=== PATIENT | female | born 1950 | race Caucasian/White ===

== ENCOUNTER 2024-02-16 07:28 | Day surgery (SDC) | payer MEDICARE, OTHER, SELFPAY ==
[2024-02-16] VITALS (49 sets, daily range): BP systolic 115–200; BP diastolic 32–122; BMI 19.1
[2024-02-16 08:13] LABS: Glucose - Point of Care 142 mg/dl (70-99)
[2024-02-16] MEDS: NSS 156 ML IV (08:13)
[2024-02-16 10:05] LABS: ACT-LR - POC 356 Seconds (116-155)
--- NOTE | 2024-02-16 10:52 | ITS.CL.CATH ---
Engine Dynamometer Tester - Catheterization
Cardiac Catheterization
Procedure Report:
CARDIAC CATHETERIZATION REPORT
Date of Procedure: 02/16/2024
Referring: Deniz Coronado MD
Indication: Known CAD with recurrent angina and new decline in LVEF
�
HEMODYNAMIC DATA
AO: 146/40
LV: 162/16
PCWP: 18
PA: 50/20
RV: 50/15
RA: 12
Oximetry: Ao 99%, PA 75%, IVC 81%,, cardiac output 3.3, cardiac index 2.1
Simultaneous left ventricular and aortic waveforms demonstrate mild to moderate aortic stenosis with mean gradient 17 mmHg
�
LEFT VENTRICULOGRAPHY: Apical akinesis with EF 43%
�
CORONARY ANGIOGRAPHY
Dominance: Right
Left Main: Short without stenosis
LAD: The LAD is a small caliber vessel with multisegment disease. There is focal 70% stenosis distal to the first septal shanker out and spanning the takeoff of the second septal shanker out. There is 50% stenosis just distal to this lesion and
proximal to the large third septal shanker out. There are tandem 60 and 70% lesions distal to the takeoff of the large S3.
Circumflex: 30% proximal circumflex stenosis with a tandem 50% and 40% mid circumflex stenoses. OM1 is a twig. OM 2 is a small vessel. OM 3 is a large branch without visible disease. The circumflex terminates with a single moderate-sized left
posterolateral branch.
RCA: There is mild luminal disease in the RCA proper with a widely patent mid RCA stent with no restenosis. The stent was placed in December 2022. There is highly angulated 70% proximal RPDA stenosis. The PDA is large and the RCA terminates with a
tiny posterolateral branch
Angioplasty: At the conclusion the diagnostic study, we proceeded with LAD PCI. A 6F EBU 3 guide catheter was used. Heparin was used for anticoagulation. A BMW wire was advanced into the mid to distal vessel but could not be passed across the
highly angulated segment of vessel just distal to the diseased segment. A Fielder XT similarly could not be placed into the apical LAD. I decided to perform balloon angioplasty to see if this would facilitate wire advancement into the apical LAD.
A 2.0 x 20 Euphora balloon was advanced to the mid LAD and sequential inflations to 8 soledad to treat the more distal segment of disease and then the more proximal segment of disease was accomplished. This provided a very good balloon results but did
not allow wire advancement into the distal LAD and it was clear that the wire was in a tiny branch vessel starting just distal to the area of significant disease. We attempted to pass a second wire but this also would not advance into the distal
LAD. At this point I placed a 2.0 x 26 Arnel frontier CARMELO to cover the proximal and more distal disease segments. We specifically chose to not extend the stent to the area just proximal to the highly angulated segment as I was concerned this might
lead to dissection/closure. The stent was deployed at 15 soledad then postdilated with a 2.5 NC emerge to maximum 16 soledad. The final angiographic result was excellent. There was no evidence of dissection distal to the stented segment and there was no
residual stenosis within the stented segment.
�
Closure Device: None-the procedure was performed. The RFA and RFV. Of note, angiography done to possibly place a closure device demonstrated a very high common femoral artery bifurcation site at the top of the femoral head and the entry site into
the vessel was either at the crotch of the DISABILITY ATTORNEY bifurcation or in the proximal deep femoral artery just distal to the bifurcation site. Accordingly, we made a decision not to place a closure device in favor of manual compression for hemostasis once
the ACT falls below 180 seconds. Brilinta 180 mg was administered the procedure conclusion as she has demonstrated a rash with Plavix in the past
�
Radiation (mGy): 538
DAP (cm2.Gy): 39.9
Fluoroscopy time: 26.7 minutes
�
CONCLUSIONS
1:�Mildly elevated left-sided filling pressures with moderate pulmonary hypertension
2:�Moderate aortic stenosis with mean gradient 17 mmHg
3. Apical akinesis with EF 43%
4. Multivessel CAD as described
5. Successful angioplasty and stenting of tandem lesions in the LAD using a 2.0 x 26 Arnel frontier CARMELO
6. Recommend triple therapy for one week (Eliquis, ASA, Brilinta) then Brilinta/Eliquis for 12 mo then ASA/Eliquis
6. Further progression of CAD and/or development of symptomatic severe aortic stenosis likely prompt the need for surgical AVR/CABG despite less than ideal target vessels
�
�
Copy to: Deniz Coronado MD ([facility]), Tomas Britt MD ([place] [place])
�
Isacc Tomlinson MD, [facility], [facility]
[2024-02-16 11:01] LABS: ACT-LR - POC 248 Seconds (116-155)
[2024-02-16 12:08] LABS: Glucose - Point of Care 116 mg/dl (70-99)
[2024-02-16 12:10] LABS: ACT-LR - POC 253 Seconds (116-155)
--- NOTE | 2024-02-16 12:17 | PN.DE.MGMTRT ---
Insulin Management
- -
02/16/2024 Diabetes Management Consult, Insulin pump:
Patient admitted, now s/p cardiac cath. PMH a fib, TIA, no residual, HTN, HLD, type 2 diabetes requiring insulin, currently using an insulin pump.
Patient is awake alert and oriented, supine s/p cath. Able to discuss diabetes care. She sees endocrine on a regular basis and states A1C is usually 6.9 to 7%. She is currently using the Tandem tslim x2 pump with DexCom G 7 and novolog insulin
with autosoft xc 9mm infusion set. Pump settings as follows:
basal Sensitivity CHO ratio target
12am .65 56 18 119
4AM .5 42 14 110
6am .8 42 11 110
9:30am .68 50 9 110
12pm .55 60 6.4 110
2pm .5 60 6.4 110
4:30pm .5 60 5.8 110
5:30pm .55 40 5.8 110
10pm .6 45 8.8 110
24 hour basal total 14.625
Patient aware to bolus for meals and corrections. Nurse to provide bedside worksheet.
Diabetes History
- -
Type of Diabetes: 2 requiring insulin
Pre-Admission Diabetes Regimen
Insulin Pump Settings
IP Diabetes Regimen
02/16/24 02/16/24
08:02 12:07
POC Glucose 142 H 116 H
Patient Education
[2024-02-16] MEDS: NSS 1000 IV (12:41)
--- NOTE | 2024-02-16 12:59 | PTCARENOTE ---
Assumed care of pt from CCL upon tsf post stent to LAD. Pt arrives awake and alert, Ox3. VSS, CM shows SB 50's, POX 100% on RA. Arterial sheath in place to right femoral artery, first ACT =253. Instructions given for movement restrictions.
Daughter 'Iman' at bedside with pt. Pt resting comfortable, offers no c/o pain or discomfort.
[2024-02-16 13:07] LABS: ACT-LR - POC 202 Seconds (116-155)
[2024-02-16 13:38] LABS: ACT-LR - POC > 397 Seconds (116-155)
[2024-02-16 13:38] LABS: ACT-LR - POC > 397 Seconds (116-155)
[2024-02-16] MEDS: TYLENOL 650 MG PO (13:47)
[2024-02-16 13:52] LABS: Glucose - Point of Care 102 mg/dl (70-99)
[2024-02-16] MEDS: PT'S OWN INSULIN PUMP - NovoLOG SC ×3 (13:52→22:06)
[2024-02-16 14:09] LABS: ACT-LR - POC 168 Seconds (116-155)
--- NOTE | 2024-02-16 14:54 | CM ---
Chart reviewed. Patient is independent of ADLS, lives with her in a 2 STH, 4 SAMIR, 0 DME. Plan is for the patient to return home. CM to follow
--- NOTE | 2024-02-16 14:55 | CM ---
Pricing on Brilinta 90mg BID though the patients [facility] [employer], ID 3 [id number] is $111 a month. Patient does not need to meet a deductible. Patient is agreeable to cost. I placed a free 30 day coupon in the patient's red discharge folder. [facility]
does have the Brilinta in stock
--- NOTE | 2024-02-16 15:11 | PTCARENOTE ---
Femoral and Venous sheath's pulled by CCL, manual pressure held as per protocol, dsg remains CDI.
[2024-02-16 17:40] LABS: Glucose - Point of Care 136 mg/dl (70-99)
[2024-02-16] MEDS: CRESTOR 20 MG PO (17:41)
[2024-02-16] MEDS: TOPROL XL 25 MG PO (17:41)
[2024-02-16] MEDS: BRILINTA 90 MG PO (20:00)
--- NOTE | 2024-02-16 21:08 | PTCARENOTE ---
Assumed care of pt. AOMarcelina and pleasant. Terra miles is c/d/i. Tele- SR. Pt has no c/o pain/discomfort at this time. POC reviewed w/ pt. Verbalizes understanding. Currently in bed; call moriah w/in reach.
[2024-02-16 22:09] LABS: Glucose - Point of Care 187 mg/dl (70-99)
[2024-02-17] VITALS (11 sets, daily range): BP systolic 75–156; BP diastolic 47–64; PULSE 66–83
[2024-02-17 04:36] LABS: Hematocrit 31.3 % (37.0-47.0); Mean Corp Hgb Conc. 35.1 g/dL (33.0-37.0); Mean Corpuscular Hgb 31.1 pg (27.0-31.0); Mean Corpuscular Volume 88.4 fL (81.0-99.0); Mean Platelet Volume 11.6 fL (7.4-10.4); Platelet Count 145 10^3/uL (130-400); Red Blood Cell Count 3.54 10^6/uL (4.20-5.40); Red Cell Dist. Width 11.9 % (11.5-14.5); White Blood Cell Count 6.8 10^3/uL (4.8-10.8)
[2024-02-17 05:02] LABS: Blood Urea Nitrogen 26 mg/dl (7-17); Calcium 9.5 mg/dl (8.4-10.2); Carbon Dioxide 26 mmol/L (22-30); Chloride 108 mmol/L (98-107); Estimated Creatinine Clearance 47 ml/min; Glucose 93 mg/dl (70-99); HDL Cholesterol 69 mg/dl; LDL Cholesterol, Calculated 45 mg/dl; Potassium 4.4 mmol/L (3.5-5.1); Sodium 141 mmol/L (135-145); Total Cholesterol 125 mg/dl (50-199); Triglyceride 58 mg/dl (10-149); Very Low Density Lipoprotein 11 mg/dl (0-30); eGFR > 60.00
--- NOTE | 2024-02-17 07:21 | W.PN.CD ---
Today's Communication / Plan
-
IVF 500 cc over 2 hrs
Groin USG
Check CBC at 12 noon- if Hb dropping will do CT abd/pelvis to rule out RPH
Impression / Plan
-
-CAD: S/P LAD PCI yesterday. ECG with Tw inversions V1-V3. No ST changes. No CP since PCI.
-Orthostatic hypotension: I was planning discharge this AM. On arrival she sat up and felt 'off'. Denied feeling dizzy.
Sitting upright: BP 97/48, HR 67
Lying flat: BP 148/52, HR 61
Groin completely benign. Hb 11.0 this AM, was 12.7 pre PCI
-: Moderate by cath and echo
Plan
IVF 500 cc over 2 hrs
Check groin USG- exam is normal
Repeat orthostatics after IVF infused
Repeat CBC at 12 noon
May be able to go home this afternoon
Physical Exam
Vital Signs/Labs
Vital Signs
Temp Pulse Resp BP Pulse Ox
98 F 56 20 148/52 98
02/17/24 07:10 02/17/24 04:30 02/17/24 07:10 02/17/24 07:18 02/17/24 07:10
02/16/24 02/17/24 02/18/24
06:59 06:59 06:59
Actual Weight 114 lb 13.773 oz
02/17/24 04:26
02/17/24 04:26
Triglycerides 58 mg/dl (10-149) 02/17/24 04:26
LDL Cholesterol, Calc 45 mg/dl 02/17/24 04:26
VLDL Cholesterol, Calc 11 mg/dl (0-30) 02/17/24 04:26
HDL Cholesterol 69 mg/dl 02/17/24 04:26
Physical Exam
Constitutional: No acute distress
EENT: Anicteric
Cardiovascular: Rhythm & rate is regular, Systolic murmur present (2/6 murmur) and S1S2 is normal
Respiratory: Respiratory effort normal and Lungs clear to auscul.
GI: Soft, Distention absent, Flat and Non tender
Other: Cath Site (clean and dry. No ecchymosis. No hematoma)
Data Reviewed
-
Date of Service: February 17, 2024
[2024-02-17 07:22] LABS: Glucose - Point of Care 110 mg/dl (70-99)
[2024-02-17] MEDS: NSS 500 IV (07:47)
--- NOTE | 2024-02-17 07:55 | PTCARENOTE ---
Patient seen by Dr. Tomlinson while VS being done this AM. Patient with orthostatic VS when checked. Right groin is dry and intact, dressing removed by Dr. Tomlinson, no edema or bleeding noted with palpable pedal pulse. Patient receiving IV bolus 500
NS now as ordered and will check right groin ultrasound.
--- NOTE | 2024-02-17 08:30 | PN.DE.MGMTRT ---
Insulin Management
- -
02/17/2024 Diabetes Management Consult, Insulin pump Follow up:
Patient admitted, now s/p cardiac cath. PMH a fib, TIA, no residual, HTN, HLD, type 2 diabetes requiring insulin, currently using an insulin pump.
Patient is awake alert and oriented able to discuss diabetes care. She sees endocrine on a regular basis and states A1C is usually 6.9 to 7%. She is currently using the Tandem tslim x2 pump with DexCom G 7 and novolog insulin with autosoft xc 9mm
infusion set. Pump settings as follows:
basal Sensitivity CHO ratio target
12am .65 56 18 119
4AM .5 42 14 110
6am .8 42 11 110
9:30am .68 50 9 110
12pm .55 60 6.4 110
2pm .5 60 6.4 110
4:30pm .5 60 5.8 110
5:30pm .55 40 5.8 110
10pm .6 45 8.8 110
24 hour basal total 14.625
02/16 Glucose range 116 to 187, patient taking bolus for meals and corrections without problem. Fasting glucose this AM 93. No change to pump settings. A1C pending.
Patient aware to bolus for meals and corrections. Nurse to provide bedside worksheet.
Diabetes History
- -
Type of Diabetes: 2 requiring insulin
Pre-Admission Diabetes Regimen
02/17/24
04:26
Creatinine 0.9
Lab Results
Hemoglobin A1c Cancelled 02/16/24 22:53
Insulin Pump Settings
IP Diabetes Regimen
02/16/24 02/16/24 02/16/24
12:07 13:51 17:39
Glucose
POC Glucose 116 H 102 H 136 H
02/16/24 02/17/24 02/17/24
22:08 04:26 07:21
Glucose 93
POC Glucose 187 H 110 H
Meal type: Dinner
Amount consumed: 100%
Patient Education
[2024-02-17] MEDS: BRILINTA 90 MG PO (09:03)
[2024-02-17] MEDS: PT'S OWN INSULIN PUMP - NovoLOG 0.39 UNIT SC (09:10)
[2024-02-17 11:32] LABS: Glycohemoglobin (HgbA1c) 6.3 % (4.0-5.6)
[2024-02-17 12:03] LABS: Glucose - Point of Care 144 mg/dl (70-99)
[2024-02-17] MEDS: PT'S OWN INSULIN PUMP - NovoLOG 3.05 UNIT SC (12:07)
[2024-02-17 12:24] LABS: Hemoglobin 11.4 g/dL (12.0-16.0); Mean Corp Hgb Conc. 34.5 g/dL (33.0-37.0); Mean Corpuscular Hgb 31.2 pg (27.0-31.0); Mean Corpuscular Volume 90.4 fL (81.0-99.0); Mean Platelet Volume 11.4 fL (7.4-10.4); Platelet Count 157 10^3/uL (130-400); Red Blood Cell Count 3.65 10^6/uL (4.20-5.40); Red Cell Dist. Width 12.1 % (11.5-14.5); White Blood Cell Count 7.4 10^3/uL (4.8-10.8)
[2024-02-17] MEDS: COZAAR 100 MG PO (12:45)
--- NOTE | 2024-02-17 13:16 | W.DS.TRANS ---
DC Summary - Casework Specialist
-
Discharge Instructions:
Sleep Apnea Risk Intermediate
Discharge Diagnosis/Procedures Angioplasty with stent to LAD
Diet Low Cholesterol,Diabetic, Carb Controlled
Driving Restrictions No driving for 24 hours
Other Services Cardiac Rehab
Instructions:
Stand-Alone Forms: DC Instructions- Cath/EP Lab
Changes to Home Medications: Yes
Discharge Medications:
DC Medications w/original date entered in [facility]
apixaban 5 mg tablet (Eliquis) 5 mg PO BID 12/26/22
aspirin 81 mg tablet,delayed release 81 mg PO QPM 12/26/22
cholecalciferol (vitamin D3) 25 mcg (1,000 unit) tablet (Vitamin D3) 25 mcg PO DAILY 12/26/22
ezetimibe 10 mg tablet 10 mg PO MOWEFR 12/26/22
losartan 100 mg tablet 100 mg PO DAILY 12/26/22
metoprolol succinate 25 mg tablet,extended release 24 hr 25 mg PO QPM #90 tabs 12/26/22
nitroglycerin 0.4 mg sublingual tablet 0.4 mg sublingual [id number] PRN chest pain #25 tabs 12/26/22
pyridoxine (vitamin B6) 50 mg tablet (Vitamin B-6) 50 mg PO DAILY 12/26/22
rosuvastatin 20 mg tablet 20 mg PO QPM 12/26/22
insulin pump cartridge 02/16/24
levocetirizine 5 mg tablet (Xyzal) 5 mg PO DAILY PRN itching 02/16/24
triamcinolone acetonide 0.1 % topical cream 1 applic topical BID PRN itching 02/16/24
ticagrelor 90 mg tablet (Brilinta) 90 mg PO BID #180 tabs 02/17/24
Home Medication Changes
new to brilinta, stop ASA after 1 week
Pending Results: No
--- NOTE | 2024-02-17 13:24 | PTCARENOTE ---
VSS, ultrasound negative, patient without complaints. Right groin is SENIOR CLINICIAN, no swelling or bleeding. Noted 9 beat run of VT on monitor when reviewing alarms- asymptomatic, notified Mariangel Alarcon NP and patient is ok for discharge. Patient discharged home
with her daughter.
--- NOTE | 2024-02-17 13:49 | CM ---
CM following for DC planning needs.
Pt. for DC to home today. There are no identified needs.
== END 2024-02-17 14:14 | disposition home or self-care (01) ==
LOC: CATH 07:28
PROVIDERS: Nurse Practitioner Adult Health; ATTENDING PHYSICIAN Internal Medicine Cardiovascular Disease; CONSULT PHYSICIAN Nurse Practitioner Acute Care; FAMILY PHYSICIAN Internal Medicine; OTHER PHYSICIAN Nuclear Medicine Nuclear Cardiology
DX: I25.119 Atherosclerotic heart disease of native coronary artery with unspecified angina pectoris (principal); I27.20 Pulmonary hypertension, unspecified; Z95.5 Presence of coronary angioplasty implant and graft; I48.0 Paroxysmal atrial fibrillation; I10 Essential (primary) hypertension; E78.5 Hyperlipidemia, unspecified; E11.9 Type 2 diabetes mellitus without complications; Z79.4 Long term (current) use of insulin; Z96.41 Presence of insulin pump (external) (internal); Z87.891 Personal history of nicotine dependence; Z86.73 Personal history of transient ischemic attack (TIA), and cerebral infarction without residual deficits; I65.29 Occlusion and stenosis of unspecified carotid artery; I73.9 Peripheral vascular disease, unspecified; I35.0 Nonrheumatic aortic (valve) stenosis; Z79.82 Long term (current) use of aspirin; Z79.01 Long term (current) use of anticoagulants; Z79.02 Long term (current) use of antithrombotics/antiplatelets; Z79.899 Other long term (current) drug therapy
CPT/HCPCS: 80048; 80061; 82962; 83036; 85027; 85347; 93005; 93460; 93926; C1725; C1769; C1874; C1887; C1894; C9600; Q9967

== ENCOUNTER → 2024-11-25 08:52 | Outpatient (REF) | payer MEDICARE, OTHER, SELFPAY | LOC: RAD 08:52 | PROVIDERS: ATTENDING PHYSICIAN Surgery Vascular Surgery | DX: I65.23 Occlusion and stenosis of bilateral carotid arteries (principal); Z13.6 Encounter for screening for cardiovascular disorders | CPT/HCPCS: 76770; 93880 ==

== ENCOUNTER → 2024-12-05 11:53 | Outpatient (REF) | payer MEDICARE, OTHER, SELFPAY | LOC: RAD 11:53 | PROVIDERS: ATTENDING PHYSICIAN Registered Nurse; REFERRING PHYSICIAN Nuclear Medicine Nuclear Cardiology | DX: I65.23 Occlusion and stenosis of bilateral carotid arteries (principal) | CPT/HCPCS: 70496; 70498; Q9967 ==

== ENCOUNTER 2025-04-05 08:36 | Inpatient (IN) | payer MEDICARE, OTHER, SELFPAY ==
[2025-03-30 10:08] LABS: APTT 35.4 Sec (23.4-35.0); Blood Urea Nitrogen 33 mg/dl (7-17); Calcium 9.9 mg/dl (8.4-10.2); Carbon Dioxide 28 mmol/L (22-30); Chloride 109 mmol/L (98-107); Glucose 114 mg/dl (70-99); INR 1.10; PT 14.7 Sec (11.4-14.6); Potassium 4.6 mmol/L (3.5-5.1); Sodium 142 mmol/L (135-145); eGFR 53.06
[2025-03-30 10:31] LABS: Hematocrit 35.3 % (37.0-47.0); Hemoglobin 11.4 g/dL (12.0-16.0); Mean Corp Hgb Conc. 32.3 g/dL (33.0-37.0); Mean Corpuscular Volume 94.9 fL (81.0-99.0); Nucleated Red Blood Cells % 0 %; Platelet Count 143 10^3/uL (130-400); Red Cell Dist. Width 12.6 % (11.5-14.5)
[2025-03-30 13:05] VITALS: BMI 19.4
--- NOTE | 2025-03-30 16:51 | PTCARENOTE ---
eGFR 53.06 collected on 03/30/25; Juanita Carias's office was notified.
[2025-04-05] VITALS (21 sets, daily range): BP systolic 82–166; BP diastolic 30–73; BMI 19.4; BMI 20.5
[2025-04-05] MEDS: BACTROBAN NASAL 1 GRAM NASAL (08:47)
[2025-04-05] MEDS: NSS 500 IV (08:47)
[2025-04-05] MEDS: PERIDEX 0.12% ORAL RINSE 15 ML PO (08:47)
--- NOTE | 2025-04-05 09:08 | HP.FOC2 ---
Focused History & Physical
Chief Complaint
HPI:
Chief Complaint: Carotid stenosis
HPI / Indication for Planned Procedure: 75 yo female with PMH sigificant for DM, HTN, HLD, CAD with stenting, afib, CHF presenting today for planned right CEA with Dr Flores. Pt presents at baseline health with no reports of recent illness or trauma.
No recent changes to her medications. Pt remains asymptomatic.
Relevant Past Medical History: Other (DM, HTN, HLD, CAD with stenting, afib, CHF)
Relevant Social History: Tobacco Use (former, quit 20 years ago)
Relevant Family History: Positive for (Heart disease, cancer)
Relevant Past Surgical History: Positive for (cardiac stents)
Review of Systems
Review of Pertinent Systems: All Systems Negative
Medication
See Medication form for detailed medications: Yes
Medication List (including Herbals & OTC):
apixaban 5 mg tablet (Eliquis) 5 mg PO BID 12/26/22
aspirin 81 mg tablet,delayed release 81 mg PO QPM 12/26/22
cholecalciferol (vitamin D3) 25 mcg (1,000 unit) tablet (Vitamin D3) 25 mcg PO QPM 12/26/22
ezetimibe 10 mg tablet 10 mg PO MOWEFR 12/26/22
rosuvastatin 20 mg tablet 20 mg PO QPM 12/26/22
insulin pump cartridge 02/16/24
triamcinolone acetonide 0.1 % topical cream 1 applic topical BID PRN itching 02/16/24
cyclosporine 0.05 % eye drops in a dropperette (Restasis) 1 drp BOTH EYES Q12H 03/28/25
empagliflozin 10 mg tablet (Jardiance) 10 mg PO DAILY 03/28/25
insulin aspart U-100 100 unit/mL subcutaneous solution (Novolog U-100 Insulin aspart) 0 unit SC DIRECTED 03/28/25
metoprolol succinate 50 mg tablet,extended release 24 hr 50 mg PO DAILY 03/28/25
nitroglycerin 0.4 mg sublingual tablet 0.4 mg sublingual Q5M PRN chest pain 03/28/25
pyridoxine (vitamin B6) 50 mg tablet (Vitamin B-6) 50 mg PO DAILY 03/28/25
sacubitril 24 mg-valsartan 26 mg tablet (Entresto) 1 tab PO BID 03/28/25
Medications Reviewed: Yes
Allergies and Reactions
Patient has Allergies: No
Noted Allergies and Reactions:
Allergy/AdvReac Type Severity Reaction Status Date / Time
No Known Allergies Allergy Verified 04/05/25 09:04
Pertinent Physical Exam
All Other Systems: Negative
Head/Neck: Normal
Lungs: Normal
Heart: Normal
Abdomen: Normal
Extremities: Normal
Neurological: Normal
Diagnosis / Assessment
Asymptomatic carotid stenosis
Plan / Procedure
Planned right CEA with Dr Flores today.
Anesthesia/Sedation to be done by Anesthesia Provider: Yes
[2025-04-05 09:23] LABS: Glucose - Point of Care 116 mg/dl (70-99)
--- NOTE | 2025-04-05 09:53 | W.SUR.PREOP ---
Pre-Operative Surgical Note
-
I have examined this patient prior to the performance of the scheduled procedure.
The patient's condition is unchanged from the time of the current History and
Physical and the patient is able to undergo the scheduled procedure.
--- NOTE | 2025-04-05 11:59 | W.SUR.POST ---
Surgical Immediate Post Op
Note
Pre Op Diagnosis: Right carotid stenosis
Post Op Diagnosis: Right carotid stenosis
Procedure Performed: Right carotid endarterectomy with bovine pericardium patch angioplasty
Primary Surgeon: Sumit Flores MD
Automatic Car Wash Attendant: KENY Lopez
Anesthesia: GETA
Estimated Blood Loss: 5 ml
Fluids: See anesthesia flowsheet
Drains/Shunts: N/A
Specimens/Cultures: Right carotid plaque
Doppler/Duplex/Angio (Y/N):Y, Doppler
Complications: None
Operative Findings: Successful carotid endarterectomy, upon awakening from anesthesia patient moved BL UE and LE to command and spontaneously
[2025-04-05 12:33] LABS: Glucose - Point of Care 162 mg/dl (70-99)
--- NOTE | 2025-04-05 12:35 | OR.RPT ---
Operative Report
Operative Report
PROCEDURE DATE: 04/05/2025
Preoperative diagnosis: Critical right carotid artery stenosis, asymptomatic.
Postoperative diagnosis: Same
Procedure: Right carotid endarterectomy with bovine pericardial patch angioplasty and intraoperative EEG/SSEP monitoring.
Surgeon: Mark
Quill Reamer: HÉCTOR Jimenez, required for all aspects of procedure including assistance with traction/countertraction, following of suture line, assistance with closure.
Complications: None
Anesthesia: General
Indications for procedure:
Critical right carotid artery stenosis. Progressed on surveillance interval imaging. Risk/benefits/alternatives of carotid endarterectomy fully discussed. Patient understood and wished to proceed.
Description of procedure:
Patient was identified brought to the operating room placed on the table in supine position. After the adequate administration of anesthesia and perioperative antibiotics she was prepped and draped in the standard surgical fashion. A standard
preoperative timeout was undertaken and everybody was in agreement the plan. A standard longitudinal incision was made in the right neck that was carried through the skin subcutaneous tissue. Using the electrocautery dissection was carried through
the platysma muscle layer and then alongside the anterior medial border of the sternocleidomastoid muscle. Then using a combination of sharp dissection with the Metzenbaum scissors and electrocautery I dissected along the anterior medial border of
the internal jugular vein. The common facial vein branch was ligated between silk ties and then divided. I then deepened my retraction. The common carotid artery was identified and carefully dissected away from the surrounding structures take
great care to avoid any injury to the structures. A vessel loop was passed around it which was double looped, but not yet tightened. An ansa branch crossed over the common carotid artery which had to be divided (I had already identified clearly
the hypoglossal nerve separately, confirming this was a answered branch). Note the vagus nerve was protected from harm's way. I then continued my dissection up the common carotid artery to the bulb staying only on the anterior surface of the
carotid artery. Then I carried the dissection up to the internal carotid artery and then to the distal internal carotid artery. I identified where it was soft and carefully circumferentially dissected the internal carotid artery with minimal
mobilization and passed a vessel loop around it. Note the hypoglossal nerve had been visualized already, and was preserved from harm's way. The patient was given an appropriate dose of heparin 5000 units. Next I dissected the anterior surface of
the external carotid artery and superior thyroid branches. These were then carefully circumferentially dissected with minimal mobilization and vessel loops passed around these which were double looped but not yet tightened. After 3 minutes of
heparin circulation time and confirmation of optimization of the blood pressure with my anesthesiology colleagues, I clamped the distal internal carotid artery where it was soft. There was no immediate EEG or SSEP changes. After 1 minute of test
clamp time there was no changes noted. Therefore at this point, the vessel loops on the external carotid artery and superior thyroid branches were tightened and the common carotid artery was clamped where it was soft proximally. An arteriotomy was
made on the common carotid artery with an 11 blade and extended using a Chavez scissor. I extended the arteriotomy onto the mid to distal internal carotid artery. Chronic hard calcified plaque was encountered, it was dense plaque resulting in near
complete occlusion of the artery. Hard plaque extended into the external carotid artery, and therefore I did tighten the vessel loop further on the external carotid artery to quell backbleeding. A [place] was then used to endarterectomized the
plaque. An endarterectomy plane was created in the carotid bulb, and the plaque was then endarterectomized. Distally I feathered the plaque out to a nice clean endpoint in the distal internal carotid artery. Next I endarterectomized the intima
back to normal intima in the common carotid artery, and the intima was cut flush there. I then grasped the plaque and everted plaque out of the origin of the external carotid artery. The plaque was then sent off for specimen. The origin of the
external carotid artery was carefully visualized and any fine debris were removed with fine forceps. Proximal and distal endpoints were then carefully inspected. Any fine debris was removed with fine forceps, and the intima was noted to be nicely
adherent proximally distally. Next any fine debris were removed throughout the endarterectomy bed with fine forceps. I then flushed heparinized saline. I was very satisfied. Then, I used a bovine pericardial patch to sew a patch angioplasty with
a running 6-0 Prolene suture. Prior to completing and tying down my suture line, I backbled sequentially each branch and reclamped each branch prior to unclamping the next branch. I then irrigated with heparinized saline. Then I completed and
tied down my suture line. We then restored flow in the common carotid and external carotid arteries. Finally, we released flow in the internal carotid artery. There was excellent pulsatile flow in all 3 vessels. There was an excellent Doppler
signal in the internal carotid artery distal to the patch with a good normal low resistance Doppler signal. There was a good Doppler signal in the external carotid artery as well. A single 6-0 Prolene [id number] sutures was placed along a
bleeding point along the suture line. Protamine was given to reverse the heparin. Hemostasis was completely achieved. We then irrigated and confirmed full hemostasis. We then closed in layers with 2-0 Vicryl layer to reapproximate the
sternocleidomastoid muscle, followed by 3-0 Vicryl platysma muscle running layer, followed by 4-0 Monocryl subcuticular stitch. Dermabond was applied. The patient tolerated procedure well. She awoke moving all extremities to command with tongue
in the midline.
[2025-04-05 12:55] LABS: Hematocrit 31.1 % (37.0-47.0); Hemoglobin 10.2 g/dL (12.0-16.0); Mean Corp Hgb Conc. 32.8 g/dL (33.0-37.0); Mean Corpuscular Volume 95.1 fL (81.0-99.0); Platelet Count 125 10^3/uL (130-400); Red Cell Dist. Width 12.4 % (11.5-14.5)
[2025-04-05 13:16] LABS: Blood Urea Nitrogen 25 mg/dl (7-17); Calcium 8.5 mg/dl (8.4-10.2); Carbon Dioxide 23 mmol/L (22-30); Chloride 111 mmol/L (98-107); Estimated Creatinine Clearance 48 ml/min; Glucose 156 mg/dl (70-99); Potassium 3.9 mmol/L (3.5-5.1); Sodium 135 mmol/L (135-145); eGFR > 60.00
[2025-04-05 13:28] LABS: Glucose - Point of Care 161 mg/dl (70-99)
--- NOTE | 2025-04-05 13:30 | PTCARENOTE ---
Received patient from PACU. patient is somnolent, pleasant. orientedx3. She is on room air, 96%. Sinus alison on monitor. left radial juan correlating with cuff pressure, zeroed at phlebostatic axis. NSS started at 80ml/hr. Patient is ordered
advance as tolerated diet, will place orders for clears. Is due to void. She has her own insulin pump in left lower abdominal quadrant. Orders to use it placed by care team. Will review orders. call major within reach.
[2025-04-05] MEDS: ROXICODONE 5 MG PO (13:38)
[2025-04-05] MEDS: NSS 1000 IV (13:38)
--- NOTE | 2025-04-05 14:28 | CON.INTV ---
Consultation
Consultation Request
Date/Time Consultation Requested: 04/05/2025 - 1152
Date/Time Consultation Performed: 04/05/2025 - 1208
Requesting Provider: KENY Collins
Performing Provider: Dr. Madsen
Reason for Consultation: R-CEA
Medical History
-
Chief Complaint: Elective right carotid endarterectomy
History of Present Illness:
75-year-old female with a past medical history of CAD s/p PCI to RCA in 2022 and LAD in 02/2024, ICM/chronic HFrEF, moderate aortic stenosis, carotid artery stenosis, paroxysmal A-fib on Eliquis, history of TIA, hyperlipidemia and DM type II who
presents for elective right sided carotid endarterectomy. Patient known to the vascular surgery service, with last visit on 11/25/2024 with Lizzeth Hagan. Subsequent CTA head/neck was performed on 12/05/2024 showing multiple areas of bilateral
stenosis including 70% stenosis in the proximal right ICA and 75% stenosis at the right carotid bifurcation. Her proximal left internal carotid artery was approximately 30% stenotic with the left carotid bifurcation 70% stenosis. Dr. Flores discussed
the patient's CT findings with her and reviewed her options on 02/28/2025 with an outpatient visit. It was recommended to proceed with right carotid endarterectomy, which the patient agreed to. Today, patient underwent right carotid endarterectomy
with bovine pericardial patch angioplasty and intraoperative EEG/SSEP monitoring. There were no complications and she was transferred to the ICU postoperatively for with Welder 2Nd Shift service consulted for additional management/recommendations.
Patient arrived to the ICU from the PACU at approximately 1330 today. When I saw the patient, patient's daughter, Iman, and patient's , Rashad, were both present at bedside. Patient's heart rate 56, BP 132/34 (via A-line), BP via NIBP:
114/38, and she was saturating 97% on room air. Patient is drowsy although easily arousable and in no acute distress. She does have some right-sided neck discomfort where the surgery took place.
PMHx: DM type II, hyperlipidemia, hypertension, CAD with stents x 2, paroxysmal A-fib on Eliquis, carotid artery stenosis, chronic HFrEF, moderate aortic stenosis
PSHx: Coronary stents
Past Medical History
Past Medical History: Other (Above as per HPI)
Past Surgical History: Other (Above as per HPI)
Social History
Tobacco: Former Smoker
Alcohol: None
Drug: None
Personal:
Living: With Family (: Rashad)
Family History
Family History: CAD (Mother) and Cancer (Father (unknown type))
Allergies / Home Medications
Allergies
Allergy/AdvReac Type Severity Reaction Status Date / Time
No Known Allergies Allergy Verified 04/05/25 09:04
Home Medications
�Medication �Instructions �Recorded �Confirmed �Last Taken �Type
apixaban 5 mg tablet (Eliquis) 5 mg PO BID 12/26/22 04/05/25 04/02/25 20:00 History
aspirin 81 mg tablet,delayed 81 mg PO QPM 12/26/22 04/05/25 04/04/25 20:00 History
release
cholecalciferol (vitamin D3) 25 25 mcg PO QPM 12/26/22 04/05/25 04/04/25 20:00 History
mcg (1,000 unit) tablet (Vitamin
D3)
ezetimibe 10 mg tablet 10 mg PO MOWEFR 12/26/22 04/05/25 04/05/25 08:00 History
rosuvastatin 20 mg tablet 20 mg PO QPM 12/26/22 04/05/25 04/04/25 20:00 History
insulin pump cartridge 02/16/24 04/05/25 Unknown History
triamcinolone acetonide 0.1 % 1 applic topical BID PRN 02/16/24 04/05/25 04/04/25 08:00 History
topical cream itching/eczema on legs
cyclosporine 0.05 % eye drops in a 1 drp BOTH EYES Q12H 03/28/25 04/05/25 04/05/25 08:00 History
dropperette (Restasis)
empagliflozin 10 mg tablet 10 mg PO DAILY 03/28/25 04/05/25 04/02/25 08:00 History
(Jardiance)
insulin aspart U-100 100 unit/mL 0 unit SC DIRECTED 03/28/25 04/05/25 04/05/25 09:08 History
subcutaneous solution (Novolog
U-100 Insulin aspart)
metoprolol succinate 50 mg 50 mg PO DAILY 03/28/25 04/05/25 04/05/25 08:00 History
tablet,extended release 24 hr
nitroglycerin 0.4 mg sublingual 0.4 mg sublingual Q5M PRN chest 03/28/25 03/28/25 Unknown History
tablet pain
pyridoxine (vitamin B6) 50 mg 50 mg PO DAILY 03/28/25 04/05/25 04/04/25 20:00 History
tablet (Vitamin B-6)
sacubitril 24 mg-valsartan 26 mg 1 tab PO BID 03/28/25 04/05/25 04/04/25 20:00 History
tablet (Entresto)
Review of Systems
-
History Source: Patient
All other systems: Negative unless noted
Vitals / Labs / Diagnostic Testing
Vital Signs
Temp Pulse Resp BP Pulse Ox
98.1 F 63 15 145/47 98
04/05/25 15:17 04/05/25 19:00 04/05/25 19:00 04/05/25 18:55 04/05/25 17:00
Lab Data
04/05/25 12:34
04/05/25 12:34
Diagnostic Testing:
Physical Exam
-
HEENT: Normocephalic and Anicteric
Cardiovascular: S1/S2, Murmur (GABRIELLA heard best at RUSB with radiation to carotid) and Peripheral Edema (negative)
Respiratory: Clear, Wheeze (negative), Rales (negative), Rhonchi (negative) and Non-Labored Respirations
GI: Soft, Non Distended, Non Tender and Normal Bowel Sounds
Neurology: Tremors (negative) and Other (Drowsy although easily arousable to voice and tactile stimulation)
Skin: Warm and Dry
General: Respiratory Distress (negative), Comfortable, Fever (negative) and Chills (negative)
Assessment
-
Assessment: 75-year-old female with a past medical history of CAD s/p PCI to RCA in 2022 and LAD in 02/2024, ICM/chronic HFrEF, moderate aortic stenosis, carotid artery stenosis, paroxysmal A-fib on Eliquis, history of TIA, hyperlipidemia and DM
type II who presents for elective right sided carotid endarterectomy. Patient known to the vascular surgery service, with last visit on 11/25/2024 with Lizzeth Hagan. Subsequent CTA head/neck was performed on 12/05/2024 showing multiple areas of
bilateral stenosis including 70% stenosis in the proximal right ICA and 75% stenosis at the right carotid bifurcation. Her proximal left internal carotid artery was approximately 30% stenotic with the left carotid bifurcation 70% stenosis. Dr. Flores
discussed the patient's CT findings with her and reviewed her options on 02/28/2025 with an outpatient visit. It was recommended to proceed with right carotid endarterectomy, which the patient agreed to. On 04/05/2025, the patient underwent right
carotid endarterectomy with bovine pericardial patch angioplasty and intraoperative EEG/SSEP monitoring. There were no complications and she was transferred to the ICU postoperatively for with Welder 2Nd Shift service consulted for additional
management/recommendations.
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
Impression:
#Critical right carotid artery stenosis s/p right carotid endarterectomy with bovine pericardial patch angioplasty and intraoperative EEG/SSEP monitoring (POD#0)
#Acute on chronic anemia
#Acute thrombocytopenia
#DM type II
#CAD s/p PCI to RCA (2022) and LAD (02/2024)
#Chronic HFrEF/ICM
#Moderate aortic stenosis
#Paroxysmal A-fib on Eliquis
#History of TIA
#Former tobacco smoker
Plan:
Postoperative surgical intensive care unit monitoring
Supplemental oxygen as needed to maintain SpO2 >90-94%
prn nebulized bronchodilators - not currently bronchospastic
Incentive spirometry encouraged 10x per hour for at least 4 hrs a day
Aspiration precautions
Pain control
Neuro and vascular checks per protocol
Maintain MAP>65
Replete electrolytes with K>4, Mg>2
Maintain euglycemia with goal BG 140-180
Vascular surgery following-correspondence and operative notes reviewed
Transfuse blood products as needed to keep Hb>7g/dL, and plt>50k (given post-operative status)
Per the daughter, the patient had a Linq placed earlier this year via Dr. Felix, although the patient also follows with another non licensed nuclear plant operator as she lives in [facility] (follows with Dr. Deniz Coronado with [facility])
DVT prophylaxis
Early nutrition
Early mobilization
Critical care statement: A total of 38 minutes of critical care time was provided for this patient today. This includes management of unstable vital signs, evaluation of the patient at bedside, reviewing the patient's pertinent medical records
including radiographs, microbiology, laboratory evaluations, and discussion with primary team, consultants, pharmacy, nutrition, physical therapy, case management, charge nurse, critical care nursing, and respiratory therapy.
--- NOTE | 2025-04-05 16:13 | PTCARENOTE ---
no change in patient's assessment. Ongoing neuro checks unchanged and WNL
[2025-04-05] MEDS: PATIENT'S OWN INSULIN PUMP SC (17:04)
[2025-04-05 17:18] LABS: Glucose - Point of Care 106 mg/dl (70-99)
[2025-04-05] MEDS: CRESTOR 20 MG PO (17:25)
[2025-04-05] MEDS: ASPIR LOW (ENTERIC COATED) 81 MG PO (17:25)
[2025-04-05] MEDS: VITAMIN D3 (cholecalciferol) 25 MCG PO (17:25)
[2025-04-05] MEDS: ENTRESTO 24 MG/26 MG 1 TAB PO (20:36)
[2025-04-05] MEDS: RESTASIS 0.05% OPHTHALMIC EMULSION 1 DROPS BOTH EYES (20:36)
[2025-04-05] MEDS: HEPARIN 5000 UNITS SC (20:36)
--- NOTE | 2025-04-05 21:22 | PTCARENOTE ---
[facility], patient resting comfortably with family at bedside. neuro checks performed q1hr, no deficits noted. patient has no co pain at this time, only c/o mild nausea, new order for zofran. ice pack intact. insulin pump running
with no issue, patient controlled and self administers if needed.
[2025-04-06] MEDS: PATIENT'S OWN INSULIN PUMP SC (00:20)
[2025-04-06 04:59] LABS: Hematocrit 32.9 % (37.0-47.0); Hemoglobin 10.4 g/dL (12.0-16.0); Mean Corp Hgb Conc. 31.6 g/dL (33.0-37.0); Mean Corpuscular Volume 101.5 fL (81.0-99.0); Platelet Count 135 10^3/uL (130-400); Red Cell Dist. Width 12.5 % (11.5-14.5)
[2025-04-06 05:00] LABS: INR 1.16; PT 15.1 Sec (11.4-14.6)
[2025-04-06 05:01] LABS: APTT 30.6 Sec (23.4-35.0)
[2025-04-06 05:08] LABS: Blood Urea Nitrogen 25 mg/dl (7-17); Calcium 8.2 mg/dl (8.4-10.2); Carbon Dioxide 23 mmol/L (22-30); Chloride 112 mmol/L (98-107); Estimated Creatinine Clearance 49 ml/min; Glucose 173 mg/dl (70-99); Potassium 4.5 mmol/L (3.5-5.1); Sodium 135 mmol/L (135-145); eGFR > 60.00
[2025-04-06 05:12] VITALS: BP 133/53
[2025-04-06] MEDS: NSS 1000 IV (05:20)
[2025-04-06 06:00] VITALS: BMI 20.6
--- NOTE | 2025-04-06 07:55 | W.PN.VS ---
Addendum entered and electronically signed by Sumit Flores MD 04/06/25 09:18:
Seen and examined with CERTIFIED TRAVEL COUNSELOR. Agree with findings as noted below. Right neck incision clean dry and intact. No hematoma. Neurologically no focal deficits. Moves all extremities well. Tongue midline. Plan/as discussed and noted below.
Original Note:
Today's Communication / Plan
-
Patient seen and examined at bedside with Dr. Sumit Flores, below plan reviewed with attending.
Assessment/Plan
-
Assessment: 75-year-old female POD #1 right carotid endarterectomy
Plan:
Discontinue arterial line
Discontinue IV fluids
Out of bed to chair with progression ambulation as tolerated
Continue blood glucose monitoring and use of patient's own insulin pump for diabetes management
Continue antiplatelet of aspirin 81 mg p.o. daily and statin
Can reinitiate home oral anticoagulation today
Pending patient progression and ability to void possible discharge later this afternoon
Subjective Data
-
Date of Service: April 06, 2025
Patient seen and examined at bedside, offers no complaints. Denies headache, nausea, vomiting, and chills. Reports well-managed postoperative pain with as needed pain medication. Does note difficulty voiding and bedpan requiring straight
catheterization overnight.
Objective Data
-
Vital Signs
Temp Pulse Resp BP Pulse Ox
98.5 F 66 12 133/53 97
04/05/25 23:56 04/06/25 07:10 04/06/25 07:10 04/06/25 05:12 04/06/25 07:10
Intake and Output
04/05/25 04/06/25 04/07/25
06:59 06:59 06:59
Intake Total 1790 / 1790
Output Total 1220 / 1220
Balance 570 / 570
Intake:
Oral fluids 300 / 300
IV fluids (Total) 1490 / 1490
Nss 1,000 ml @ 80 mls/hr IV . 1440 / 1440
[id number] MUNIR Rx#:[id number]
normal saline 50 / 50
Output:
Urine, Damian 620 / 620
Straight cath output 600 / 600
Lab Results
04/06/25 04:31
04/06/25 04:31
Calcium 8.2 mg/dl (8.4-10.2) L 04/06/25 04:31
Physical Exam
-
No apparent distress, resting in bed comfortably
Face symmetrical, right surgical neck site clean, dry, and intact, no evidence of hematoma, tongue midline
No tachycardia
No dyspnea on room air
Moves bilateral upper extremities and lower extremities with equal strength
--- NOTE | 2025-04-06 08:12 | W.PN.INTV ---
Today's Communication / Plan
Recommendations
Pain control
Postoperative management per vascular surgery
Continue Eliquis
Encourage incentive spirometer
Outpatient follow-up with vascular surgery + cardiology
Patient is being prepared for discharge home. No additional recommendations at this time. Top Stop Attacher/Pulmonary service will now sign off. Please reconsult if there are any additional questions/concerns, or if patient's respiratory status
deteriorates.
Assessment
-
Assessment: 75-year-old female with a past medical history of CAD s/p PCI to RCA in 2022 and LAD in 02/2024, ICM/chronic HFrEF, moderate aortic stenosis, carotid artery stenosis, paroxysmal A-fib on Eliquis, history of TIA, hyperlipidemia and DM
type II who presents for elective right sided carotid endarterectomy. Patient known to the vascular surgery service, with last visit on 11/25/2024 with Lizzeth Hagan. Subsequent CTA head/neck was performed on 12/05/2024 showing multiple areas of
bilateral stenosis including 70% stenosis in the proximal right ICA and 75% stenosis at the right carotid bifurcation. Her proximal left internal carotid artery was approximately 30% stenotic with the left carotid bifurcation 70% stenosis. Dr. Flores
discussed the patient's CT findings with her and reviewed her options on 02/28/2025 with an outpatient visit. It was recommended to proceed with right carotid endarterectomy, which the patient agreed to. On 04/05/2025, the patient underwent right
carotid endarterectomy with bovine pericardial patch angioplasty and intraoperative EEG/SSEP monitoring. There were no complications and she was transferred to the ICU postoperatively for with Top Stop Attacher service consulted for additional
management/recommendations.
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
Impression:
#Critical right carotid artery stenosis s/p right carotid endarterectomy with bovine pericardial patch angioplasty and intraoperative EEG/SSEP monitoring (POD#1)
#Acute on chronic anemia
#Acute thrombocytopenia
#DM type II
#CAD s/p PCI to RCA (2022) and LAD (02/2024)
#Chronic HFrEF/ICM
#Moderate aortic stenosis
#Paroxysmal A-fib on Eliquis
#History of TIA
#Former tobacco smoker
Plan:
Postoperative surgical intensive care unit monitoring
Supplemental oxygen as needed to maintain SpO2 >90-94%
prn nebulized bronchodilators - not currently bronchospastic
Incentive spirometry encouraged 10x per hour for at least 4 hrs a day
Aspiration precautions
Pain control
Neuro and vascular checks per protocol
Maintain MAP>65
Replete electrolytes with K>4, Mg>2
Maintain euglycemia with goal BG 140-180
Vascular surgery following-correspondence and operative notes reviewed
Transfuse blood products as needed to keep Hb>7g/dL, and plt>50k (given post-operative status)
Per the daughter, the patient had a Linq placed earlier this year via Dr. Felix, although the patient also follows with another computer numerical control machinist as she lives in [facility] (follows with Dr. Deniz Coronado with [facility])
- Continue follow up with Cardiology as an outpatient
DVT prophylaxis
Early nutrition
Early mobilization
Patient is being prepared for discharge home. No additional recommendations at this time. Top Stop Attacher/Pulmonary service will now sign off. Thank you for allowing us to be involved in the care of this patient. Please reconsult if there are any
additional questions/concerns, or if patient's respiratory status deteriorates.
Total time spent today was 42 minutes for this encounter. Time includes reviewing laboratory test/imaging results, reviewing pertinent medical records, obtaining and reviewing medical history, performing an appropriate exam, ordering medications,
tests and procedures. Time also includes documentation of this encounter, coordinating patient care and communicating with other healthcare professionals. Total time does not include separately billed tests performed on this date of service.
Subjective Dataa
Subjective Data
Date of Service:
Date of Service: April 06, 2025
Chief Complaint: Top Stop Attacher Follow Up
Subjective:
Patient seen and evaluated today at bedside. No acute events reported from overnight. Afebrile, currently on room air breathing comfortably, saturating 99%.
Review of Systems
General: Other (Negative unless mentioned above)
Objective Data
Data Reviewed
Vital Signs / I&O / Oxygen:
Vital Signs
Temp Pulse Resp BP Pulse Ox
98.8 F 66 15 140/49 99
04/06/25 11:37 04/06/25 12:00 04/06/25 12:00 04/06/25 12:00 04/06/25 09:46
Intake and Output
04/05/25 04/06/25 04/07/25
06:59 06:59 06:59
Intake Total 1790 / 1870 240 / 240
Output Total 1220 / 1220 500 / 500
Balance 570 / 650 -260 / -260
SaO2 99
Nasal Cannula flow liters per 2
minute
Physical Exam
General: Respiratory Distress (negative), Comfortable and Chills (negative)
HEENT: Anicteric and Other (Vertical scar seen on right anterior neck, which is clean, without purulence or exsanguination)
Cardiovascular: S1-S2 and Peripheral Edema (negative)
Respiratory: Clear, Wheeze (negative), Crackles (negative), Rhonchi (negative) and Stridor (negative)
GI: Soft, Non Distended, Non Tender and Normal Bowel Sounds
Neurology: Awake, Alert and Tremors (negative)
Skin: Warm, Dry, Cyanosis (negative) and Jaundice (negative)
Labs/Micro/Reports
Lab Data
04/06/25 04:31
04/06/25 04:31
Laboratory Results
04/06/25
04:31
PT 15.1 H
INR 1.16
APTT 30.6
[2025-04-06 08:54] VITALS: BP 117/36
[2025-04-06] MEDS: PATIENT'S OWN INSULIN PUMP 0.99 UNITS SC (08:57)
[2025-04-06] MEDS: ENTRESTO 24 MG/26 MG 1 TAB PO (08:58)
[2025-04-06] MEDS: TOPROL XL 50 MG PO (08:59)
[2025-04-06] MEDS: FARXIGA 10 MG PO (08:59)
[2025-04-06] MEDS: RESTASIS 0.05% OPHTHALMIC EMULSION 1 DROPS BOTH EYES (08:59)
[2025-04-06] MEDS: VITAMIN B-6 50 MG PO (08:59)
[2025-04-06 09:00] VITALS: BP 125/62
[2025-04-06] MEDS: ELIQUIS 5 MG PO (09:04)
[2025-04-06] MEDS: HEPARIN SC (09:17)
--- NOTE | 2025-04-06 09:48 | PTCARENOTE ---
Received pt awake and alert.Speech is appropriate without dysarthria.5/5 VARGAS.No droop noted.Gait is steady.Denies pain.SR noted.IVF and A Line discontinued as ordered.Lungs CTA.POX 99% on RA.Appetite good.No BM.No void at this time.Right neck
incision intact with surgical adhesive .Plan of care discussed with pt, her daughter and Dr Flores at bedside.
[2025-04-06 10:01] VITALS: BP 116/39
[2025-04-06 11:00] VITALS: BP 134/95
--- NOTE | 2025-04-06 11:45 | W.DS.TRANS ---
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
-
Discharge Instructions:
Sleep Apnea Risk Intermediate
Discharge Diagnosis/Procedures Right carotid endarterectomy
Diet As tolerated
Activity No strenuous activity
Driving Restrictions Not until seen by your Dr
Bathing Restrictions OK to Shower
Instructions:
Stand-Alone Forms: Vascular Surg Discharge Instr
Changes to Home Medications: No
Discharge Medications:
DC Medications w/original date entered in [employer]
apixaban 5 mg tablet (Eliquis) 5 mg PO BID Blood Clot Prevention/Tx 12/26/22
aspirin 81 mg tablet,delayed release 81 mg PO QPM Blood Clot Prevention/Tx 12/26/22
cholecalciferol (vitamin D3) 25 mcg (1,000 unit) tablet (Vitamin D3) 25 mcg PO QPM Supplement 12/26/22
ezetimibe 10 mg tablet 10 mg PO MOWEFR High Cholesterol 12/26/22
rosuvastatin 20 mg tablet 20 mg PO QPM High Cholesterol 12/26/22
insulin pump cartridge 02/16/24
triamcinolone acetonide 0.1 % topical cream 1 applic topical BID PRN itching/eczema on legs 02/16/24
cyclosporine 0.05 % eye drops in a dropperette (Restasis) 1 drp BOTH EYES Q12H Eye Condition 03/28/25
empagliflozin 10 mg tablet (Jardiance) 10 mg PO DAILY Heart Disease/Condition 03/28/25
insulin aspart U-100 100 unit/mL subcutaneous solution (Novolog U-100 Insulin aspart) 0 unit SC DIRECTED Diabetes 03/28/25
metoprolol succinate 50 mg tablet,extended release 24 hr 50 mg PO DAILY Heart Disease/Condition 03/28/25
nitroglycerin 0.4 mg sublingual tablet 0.4 mg sublingual Q5M PRN chest pain 03/28/25
pyridoxine (vitamin B6) 50 mg tablet (Vitamin B-6) 50 mg PO DAILY Supplement 03/28/25
sacubitril 24 mg-valsartan 26 mg tablet (Entresto) 1 tab PO BID Heart Disease/Condition 03/28/25
Home Medication Changes
Pending Results: No
[2025-04-06 11:54] LABS: Glycohemoglobin (HgbA1c) 6.5 % (4.0-5.9)
[2025-04-06 12:00] VITALS: BP 140/49
--- NOTE | 2025-04-06 12:22 | CM ---
Initial assessment completed with patient who lives with her in a 2 story home plus basement with B/B on 2nd, no 1/2 bath on 1st, 4 steps to enter. 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 Does not use DME but in the
home is a SPC and RW. No in-home services. Does have HC-POA. No VA benefits. No psychiatric hospitalizations. PCP is Lacho Olguin. [facility] [place]. DiIscharge POC: Anticipate home with no needs.
--- NOTE | 2025-04-06 12:26 | CM ---
Patient has been medically cleared for discharge to home with no additional skilled services. Patient has arranged for transport home.
--- NOTE | 2025-04-06 14:11 | PN.DE.MGMTRT ---
Insulin Management
- -
04/06/2025 Diabetes Management Consult for patient with insulin pump
Patient seen 10:25, late note
Patient admitted 04/05 for carotid endarterectomy. PMH Diabetes, HLD, HTN, CAD wit 2 stents, carotid stenosis, afib, chf 05/26/24. Prior to admission was using the tandem tslim x2 pump with control IQ and DexCom G7 and novolog insulin and
Jardiance 10 mg daily. A1C 6.5%.
POD 1 s/p carotid endarterectomy, doing well. 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 States she has had diabetes for ~ 42 years, had gestational diabetes 47 years ago,
after of baby glucose in control. 5 years later diagnosed with diabetes. Her Insulin pump is in place, glucose range 106 to 173. Patient using insulin pump without difficulty. Pump settings:
Basal Carb ratio Sensitivity
12am .65 56 18
4am .5 42 14
6am .825 40 11
9:30am .8 48 9
12noon .55 58 6.4
2pm .5 58 6.4
4:30pm .5 58 5.8
5:30pm .55 40 5.8
10pm .6 45 8.8
24 hour basal total 15.013.
Will continue insulin pump at current settings.
Patient for possible discharge.
Diabetes History
- -
Type of Diabetes: 2 requiring insulin
Pre-Admission Diabetes Regimen
04/06/25
04:31
Creatinine 0.9
Lab Results
Hemoglobin A1c Cancelled 04/06/25 09:45
Insulin Pump Settings
IP Diabetes Regimen
04/05/25 04/06/25
17:06 04:31
Glucose 173 H
POC Glucose 106 H
Meal type: Breakfast
Meal type: Dinner
Amount consumed: 100%
Amount consumed: 75%
Patient Education
--- NOTE | 2025-04-06 16:42 | W.DCSUMMARY ---
Discharge Summary
Discharge Data
Date of Admission: 04/05/25
Date of Discharge: 04/06/25
-
Pending Results: No
Hospital Course
Attending: Mark
Consultants: Pulmonary medicine
Allergies: NKDA
Procedure with date: 04/05/2025: Right carotid endarterectomy with bovine pericardial patch angioplasty and EEG monitoring
History of present illness: The patient is an 75-year-old female with multiple medical conditions including: carotid stenosis, CAD, CHF, AAS, A-fib, hyperlipidemia, diabetes. Patient presented on 04/05/2025 for scheduled procedure with Dr. Flores.
Patient presented at baseline health with no reports of recent illness or trauma.
Hospital Course: Briefly, the patient underwent scheduled CEA without complications, and recovered in PACU. Following recovery phase one and two patient was transferred to intensive care unit per protocol for continued hemodynamic monitoring.
Blood Bank Laboratory Technologist consulted to aid in medical management from a critical care perspective. POD #1 (04/06/2025) Patient neurologically intact, face symmetrical, and tolerating PO diet. Surgical neck incision clean, dry, and intact with suture line well
approximated and soft. No evidence of hematoma. Arterial line and IV fluids discontinued. Patient able to ambulate without difficulty or incident. Patient stable for discharge to home.
Prescriptions and follow up appointment are included in the DC summary rehabilitation construction specialist note. All instructions were given to the patient in both written and verbal form and the patient expressed understanding
Discharge Plan
-
Patient Disposition: Home (Routine Discharge)
Discharge Diagnosis/Procedures: Right carotid endarterectomy
Condition: Good
Diet: As tolerated
Activity: No strenuous activity
Driving Restrictions: Not until seen by your Dr
Bathing Restrictions: OK to Shower
Stand Alone Forms: Vascular Surg Discharge Instr
Referrals:
Lacho Valentin DO [Primary Care Provider, Internal Medicine]
Lizzeth Hagan CRNP [Specified Professional Personl, Vascular Surgery] - 04/19/25 1:00 pm
Referral Note: Vascular surgery office follow up
Prescriptions:
Continued
aspirin 81 mg Tablet,Delayed Release (Dr/Ec)
81 mg PO QPM
ezetimibe 10 mg Tablet
10 mg PO MOWEFR
rosuvastatin 20 mg Tablet
20 mg PO QPM
cholecalciferol (vitamin D3) [Vitamin D3] 25 mcg (1,000 unit) Tablet
25 mcg PO QPM
Eliquis 5 mg Tablet
5 mg PO BID
triamcinolone acetonide 0.1 % Cream
1 applic TOPICAL BID PRN (Reason: itching/eczema on legs)
(DME) insulin pump cartridge
Rx Instructions:
'enough until night' 90 units in cartridge
metoprolol succinate 50 mg Tablet Extended Release 24 Hr
50 mg PO DAILY
insulin aspart U-100 [Novolog U-100 Insulin aspart] 100 unit/mL Solution
0 unit SC DIRECTED
Patient Comments:
1.3 unit/hr basal
Rx Instructions:
insulin pump
nitroglycerin 0.4 mg Tablet, Sublingual
0.4 mg SUBLINGUAL Q5M PRN (Reason: chest pain)
pyridoxine (vitamin B6) [Vitamin B-6] 50 mg Tablet
50 mg PO DAILY
Jardiance 10 mg Tablet
10 mg PO DAILY
sacubitril-valsartan [Entresto] 24-26 mg Tablet
1 tab PO BID
cyclosporine [Restasis] 0.05 % Dropperette
1 drp BOTH EYES Q12H
Discharge Orders:
Discharge Patient (As Directed); Ordered 04/06/25
Ordered By: Genny Jimenez
Discharge Date and Time
Discharge Date/Time: 04/06/25 12:14
Print Language: THAI
== END 2025-04-06 12:14 | disposition home or self-care (01) | DRG 38 ==
LOC: ICU 08:36
PROVIDERS: Nurse Practitioner; ADMITTING PHYSICIAN Surgery Vascular Surgery; CONSULT PHYSICIAN Internal Medicine Critical Care Medicine; PRIMARYCARE PHYSICIAN Internal Medicine
PROC: 03CH0ZZ Extirpation of Matter from Right Common Carotid Artery, Open Approach (ICD-10-PCS; 2025-04-05)
PROC: 04UK0KZ Supplement Right Femoral Artery with Nonautologous Tissue Substitute, Open Approach (ICD-10-PCS; 2025-04-05)
DX: I65.21 Occlusion and stenosis of right carotid artery (principal); I50.22 Chronic systolic (congestive) heart failure; I65.23 Occlusion and stenosis of bilateral carotid arteries; I11.0 Hypertensive heart disease with heart failure; Z79.01 Long term (current) use of anticoagulants; I48.0 Paroxysmal atrial fibrillation; E11.9 Type 2 diabetes mellitus without complications; D69.6 Thrombocytopenia, unspecified; Z86.73 Personal history of transient ischemic attack (TIA), and cerebral infarction without residual deficits; Z87.891 Personal history of nicotine dependence; E78.5 Hyperlipidemia, unspecified; I25.10 Atherosclerotic heart disease of native coronary artery without angina pectoris; I35.0 Nonrheumatic aortic (valve) stenosis; Z79.82 Long term (current) use of aspirin
CPT/HCPCS: 35301; 36415; 71046; 80048; 82962; 83036; 85025; 85027; 85610; 85730; 86850; 86900; 86901; 88304; 88311; 95938; 95941; 95955

== ENCOUNTER → 2025-05-23 13:39 | Outpatient (REF) | payer MEDICARE, OTHER, SELFPAY | LOC: RAD 13:39 | PROVIDERS: ATTENDING PHYSICIAN Registered Nurse; FAMILY PHYSICIAN Internal Medicine; OTHER PHYSICIAN Nuclear Medicine Nuclear Cardiology | DX: I65.23 Occlusion and stenosis of bilateral carotid arteries (principal) | CPT/HCPCS: 93880 ==